=== PATIENT | female | born 1925 ===

== ENCOUNTER → 2017-01-27 | Outpatient (CLI) | payer MEDICARE ==
--- NOTE | 2017-01-27 11:31 | Diagnostic Imaging Report ---
PROCEDURE: CT chest without contrast. TECHNIQUE: Multiple contiguous axial images were obtained through the chest without the use of intravenous contrast. INDICATION: Lung nodule. Shortness of breath. FINDINGS: There is a normal variation of an azygos fissure along the medial aspect of the left upper lobe. There is a pulmonary nodule seen in the right middle lobe measuring 5 mm, axial image 36. No other pulmonary nodules or masses are seen. There is minimal groundglass opacity in the inferior lingula which could be related to mild ectasis or scarring. Similar findings in the right lower lobe is also seen, probably related to atelectasis or scarring. No significant consolidation. The mediastinum demonstrates no mass or significantly enlarged lymph nodes. The heart size is normal. No pericardial effusion. Prominent chronologic opacifications are seen. The thoracic aorta is normal in caliber. Sections in the upper abdomen demonstrate no definite abnormality. There is moderate right convexity scoliosis in the thoracic spine with prominent degenerative changes. IMPRESSION: Indeterminate 5 mm pulmonary nodule in the right lower lobe of uncertain significance. If the patient has high risk for malignancy, a followup exam in 6-12 months to reevaluate could be considered. No suspicious nodule, mass or significant consolidation is seen otherwise. The mild groundglass opacities in the bases are likely related to mild atelectasis and/or scarring. Dictated on workstation # [id number]
== END ==
LOC: RAD 09:47
PROVIDERS: ATTEND Internal Medicine Critical Care Medicine
DX: R91.1 Solitary pulmonary nodule (principal); R06.00 Dyspnea, unspecified
CPT/HCPCS: 71250